=== PATIENT | female | born 1970 | race Caucasian/White ===

== ENCOUNTER 2025-04-27 04:15 | Emergency (ER) | payer OTHER ==
[2025-04-27] MEDS ORDERED: METHYLPREDNISOLONE 125 MG INJ ONE (04:33)
[2025-04-27] MEDS ORDERED: DIPHENHYDRAMINE 50 MG/ML VIAL ONE (04:34)
[2025-04-27] MEDS ORDERED: NA CHLORIDE 0.9% 1,000 ML ONE (04:34)
[2025-04-27] MEDS ORDERED: KETOROLAC 30 MG/ML INJ ONE (04:34)
[2025-04-27] MEDS ORDERED: FAMOTIDINE 20 MG/2 ML VIAL IV ONE (04:34)
--- NOTE | 2025-04-27 05:43 | EDPHYS ---
Physician Documentation [facility] Name: Jeana Guerrero Age: 54 yrs Sex: Female : 1970 Arrival Date: 04/27/2025 Time: 04:15 Bed 8 Private MD: ED Physician Abel Davila HPI: 04/27 04:27 This 54 yrs old Female presents to ER via Unassigned with complaints of sp4 Allergic Reaction, Rash. 04/28 00:34 54-year-old female presents with acute allergic reaction and diffuse rash. Reports this sp4 is secondary to poison maria l that she encountered in the yard. . 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 - Infectious Disease History:: Denies. - Social history:: Smoking status: Reported history of juuling and/or vaping. Patient uses alcohol, occasionally. Patient/guardian denies using street drugs. - Family history:: not pertinent. ROS: 04/28 00:34 Constitutional: Negative for fever, chills, and weight loss, positive for diffuse rash sp4 itching and excoriations. All other systems are negative, Exam: 00:34 Constitutional: This is a well developed, well nourished patient who is awake, alert, sp4 and in no acute distress. 02:02 Head/Face: Normocephalic, atraumatic. Eyes: Pupils equal round and reactive to light, sp4 extra-ocular motions intact. Lids and lashes normal. Conjunctiva and sclera are not injected. Cornea within normal limits. Periorbital areas with no swelling, redness, or edema. ENT: Nares patent. No nasal discharge, no septal abnormalities noted. Tympanic membranes are normal and external auditory canals are clear. Oropharynx with no redness, swelling, or masses, exudates, or evidence of obstruction, uvula midline. Mucous membranes moist. Neck: Trachea midline, no thyromegaly or masses palpated, and no cervical lymphadenopathy. Supple, full range of motion without nuchal rigidity, or vertebral point tenderness. Chest/axilla: Normal chest wall appearance and motion. Nontender with no deformity. No lesions are appreciated. Cardiovascular: Regular rate and rhythm with a normal S1 and S2. No gallops, murmurs, or rubs. No pulse deficits. Respiratory: Lungs have equal breath sounds bilaterally, clear to auscultation and percussion. No rales, rhonchi or wheezes noted. No increased work of breathing, no retractions or nasal flaring. Abdomen/GI: Soft, with normal bowel sounds. No distension or tympany. No guarding or rebound. No evidence of tenderness throughout. Back: No spinal tenderness. No costovertebral tenderness. Skin: Warm, dry with normal turgor. Normal color with bilateral upper lower extremity rash associated with excoriations and blistering, consistent with acute contact dermatitis MS/ Extremity: Pulses equal, no cyanosis. Neurovascular intact. Full, normal range of motion. Neuro: Awake and alert, GCS 15, oriented to person, place, time, and situation. Cranial nerves II-XII grossly intact. Motor strength 5/5 in all extremities. Sensory grossly intact. Psych: Awake, alert, with orientation to person, place and time. Behavior, mood, and affect are within normal limits Vital Signs: 04/27 04:25 BP 153 / 84; Pulse 83; Resp 19; Temp 98.4; Pulse Ox 100% ; Weight 68.04 kg; Height 5 bm8 ft. 4 in. ; Pain 6/10; 05:37 bm8 04:25 Body Mass Index 25.75 (68.04 kg, 162.56 cm) bm8 04:25 Pain Scale: Adult bm8 05:37 pt declined last vitals bm8 Sue Coma Score: 04:26 Eye Response: spontaneous(4). Motor Response: obeys commands(6). Verbal Response: bm8 oriented(5). Total: 15. 05:37 Eye Response: spontaneous(4). Motor Response: obeys commands(6). Verbal Response: bm8 oriented(5). Total: 15. 04/28 02:02 Eye Response: spontaneous(4). Motor Response: obeys commands(6). Verbal Response: sp4 oriented(5). Total: 15. MDM: 04/27 05:01 Medical Screening Exam initiated sp4 04/28 02:02 Differential diagnosis: anaphylaxis, angioedema, Arrhythmias Carcinoid Seizure sp4 urticaria. Data reviewed: vital signs, nurses notes. Consideration of Admission/Observation Escalation of care including admission/observation considered. ED course: Patient feels improved after medications. Stable for discharge home.. 04/27 04:31 Order name: IV Saline Lock; Complete Time: 04:44 sp4 04/27 04:31 Order name: Labs collected and sent; Complete Time: 04:44 sp4 Administered Medications: 04/27 04:44 Drug: Famotidine IVP 20 mg IVP once; dilute with 10 mL 0.9% NaCl; give over 2 minutes bm8 Route: IVP; Site: left hand; 05:38 Follow up: Response: No adverse reaction bm8 04:44 Drug: TORadol - Ketorolac IVP 15 mg IVP once Route: IVP; Site: left hand; bm8 05:39 Follow up: Response: No adverse reaction bm8 04:44 Drug: NS 0.9% IV 1000 ml IV at 1 bolus Per protocol; to be given as a bolus over 60 bm8 minutes Route: IV; Rate: 1 bolus; Site: left hand; 05:38 Follow up: Response: No adverse reaction; IV Status: Completed infusion bm8 04:44 Drug: diphenhydrAMINE IVP 50 mg IVP once Route: IVP; Site: left hand; bm8 05:38 Follow up: Response: No adverse reaction bm8 04:44 Drug: MethylPrednisoLONE IVP 125 mg IVP once Route: IVP; Site: left hand; bm8 05:38 Follow up: Response: No adverse reaction bm8 Disposition: 04/28 02:02 Chart complete. sp4 Disposition Summary: 04/27/25 05:42 Discharge Ordered Notes: Location: Home sp4 Problem: new sp4 Symptoms: have improved sp4 Condition: Stable sp4 Diagnosis - Acute contact dermatitis, poison maria l dermatitis sp4 Followup: sp4 - With: Private Physician - When: 7 - 10 days - Reason: Recheck today's complaints Discharge Instructions: - Discharge Summary Sheet sp4 - Contact Dermatitis, [id number] sp4 Forms: - Patient Portal Instructions sp4 Prescriptions: - Benadryl 25 mg Oral capsule - take 1 capsule ORAL route every 8 hours As needed PRN itching; 30 tablet; sp4 Refills: 0, Product Selection Permitted - Prednisone 20 mg Oral Tablet - take 2 tablets ORAL route once daily for 5 days; 10 tablet; Refills: 0, Product sp4 Selection Permitted Signatures: Abel Davila MD MD sp4 Luiz Samayoa, RN RN bm8
--- NOTE | 2025-04-27 05:43 | ER ---
Nurse's Notes [facility] Name: Jeana Guerrero Age: 54 yrs Sex: Female : 1970 Arrival Date: 04/27/2025 Time: 04:15 Bed 8 Private MD: Diagnosis: Acute contact dermatitis, poison maria l dermatitis Presentation: 04/27 04:25 Chief complaint: Patient states: I was in the yard and got poison maria l all over my legs bm8 and arms and I am highly allergic. 04:25 Coronavirus screen: Vaccine status: Patient reports receiving the 2nd dose of the covid bm8 vaccine. At this time, the client does not indicate any symptoms associated with coronavirus-19. Ebola Screen: Patient negative for fever greater than or equal to 101.5 degrees Fahrenheit, and additional compatible Ebola Virus Disease symptoms Patient denies exposure to infectious person. Patient denies travel to an Ebola-affected area in the 21 days before illness onset. No symptoms or risks identified at this time. Onset: The symptoms/episode began/occurred gradually. Anaphylaxis evaluation, no signs or symptoms of anaphylaxis were noted. Initial Sepsis Screen: Does the patient meet any 2 criteria? No. Patient's initial sepsis screen is negative. Does the patient have a suspected source of infection? No. Patient's initial sepsis screen is negative. Risk Assessment: Do you want to hurt yourself or someone else? Patient reports no desire to harm self or others. Onset of symptoms was April 26, 2025 at 17:00. 04:25 Method Of Arrival: Ambulatory bm8 04:25 Acuity: ENRIQUE 3 bm8 Triage Assessment: 04:25 General: Appears in no apparent distress. uncomfortable, Behavior is cooperative, bm8 anxious. Pain: Complains of pain in chest, abdomen, right arm, left arm, right leg and left leg Pain currently is 6 out of 10 on a pain scale. Quality of pain is described as burning, itching. EENT: No deficits noted. No signs and/or symptoms were reported regarding the EENT system. Neuro: No deficits noted. Level of Consciousness is awake, alert, obeys commands, Oriented to person, place, time, situation, Appropriate for age. 04:25 Cardiovascular: Denies chest pain, Heart tones S1 S2 present Capillary refill < 3 bm8 seconds in bilateral fingers Patient's skin is warm and dry. Respiratory: Airway is patent Respiratory effort is even, unlabored, Respiratory pattern is regular, symmetrical, Breath sounds are clear bilaterally. GI: No deficits noted. No signs and/or symptoms were reported involving the gastrointestinal system. : No deficits noted. No signs and/or symptoms were reported regarding the genitourinary system. Derm: Rash noted that is itchy, red, Reports burning, itching. Musculoskeletal: No deficits noted. No signs and/or symptoms reported regarding the musculoskeletal system. 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 - Infectious Disease History:: Denies. - Social history:: Smoking status: Reported history of juuling and/or vaping. Patient uses alcohol, occasionally. Patient/guardian denies using street drugs. - Family history:: not pertinent. Screenin:26 [facility] ED Fall Risk Assessment (Adult) History of falling in the last 3 months, bm8 including since admission No falls in past 3 months (0 pts) Confusion or Disorientation No (0 pts) Intoxicated or Sedated No (0 pts) Impaired Gait No (0 pts) Mobility Assist Device Used No (0 pt) Altered Elimination No (0 pt) Score/Fall Risk Level 0 - 2 = Low Risk Oriented to surroundings, Maintained a safe environment, Educated pt \T\ family on fall prevention, incl call for assistance when getting out of bed, Assessed \T\ reinforced patient's understanding of fall precautions, Hourly rounding (assess needs \T\ fall precautionary measures) done, Used ambulatory aids as needed (educated on \T\ assisted with), Used gait belt as appropriate. Abuse screen: Denies threats or abuse. Nutritional screening: No deficits noted. Tuberculosis screening: No symptoms or risk factors identified. Assessment: 04:26 Reassessment: see triage assessment. bm8 05:37 Reassessment: Patient appears in no apparent distress at this time. Patient and/or bm8 family updated on plan of care and expected duration. Pain level reassessed. Patient is alert, oriented x 3, equal unlabored respirations, skin warm/dry/pink. pt states that she is ready to go. Patient denies pain at this time. Patient states feeling better. Patient states symptoms have improved. Respiratory: No deficits noted. Airway is patent Trachea midline Respiratory effort is even, unlabored, Respiratory pattern is regular, symmetrical. Vital Signs: 04:25 BP 153 / 84; Pulse 83; Resp 19; Temp 98.4; Pulse Ox 100% ; Weight 68.04 kg; Height 5 bm8 ft. 4 in. ; Pain 6/10; 05:37 bm8 04:25 Body Mass Index 25.75 (68.04 kg, 162.56 cm) bm8 04:25 Pain Scale: Adult bm8 05:37 pt declined last vitals bm8 [place] Coma Score: 04:26 Eye Response: spontaneous(4). Motor Response: obeys commands(6). Verbal Response: bm8 oriented(5). Total: 15. 05:37 Eye Response: spontaneous(4). Motor Response: obeys commands(6). Verbal Response: bm8 oriented(5). Total: 15. 04/28 02:02 Eye Response: spontaneous(4). Motor Response: obeys commands(6). Verbal Response: sp4 oriented(5). Total: 15. ED Course: 04/27 04:19 Patient arrived in ED. im 04:25 Arm band placed on right wrist. bm8 04:26 Shea Forde, RN is Primary Nurse. kd3 04:26 No provider procedures requiring assistance completed. Patient maintains SpO2 bm8 saturation greater than 95% on room air. 04:26 Patient has correct armband on for positive identification. Bed in low position. Call bm8 light in reach. Side rails up X 1. Adult w/ patient. Client placed on continuous cardiac and pulse oximetry monitoring. NIBP monitoring applied. Pulse ox on. NIBP on. Door closed. Noise minimized. Pillow given. Verbal reassurance given. Head of bed elevated. 04:27 Abel Davila MD is Attending Physician. sp4 04:41 Inserted saline lock: 22 gauge in left hand, using aseptic technique. Flushed with 10 kd3 mL NS. 04:46 Triage completed. bm8 05:37 IV discontinued, intact, bleeding controlled, No redness/swelling at site. Pressure bm8 dressing applied. 05:37 Provided Education on: post er care. bm8 Administered Medications: 04:44 Drug: Famotidine IVP 20 mg IVP once; dilute with 10 mL 0.9% NaCl; give over 2 minutes bm8 Route: IVP; Site: left hand; 05:38 Follow up: Response: No adverse reaction bm8 04:44 Drug: TORadol - Ketorolac IVP 15 mg IVP once Route: IVP; Site: left hand; bm8 05:39 Follow up: Response: No adverse reaction bm8 04:44 Drug: NS 0.9% IV 1000 ml IV at 1 bolus Per protocol; to be given as a bolus over 60 bm8 minutes Route: IV; Rate: 1 bolus; Site: left hand; 05:38 Follow up: Response: No adverse reaction; IV Status: Completed infusion bm8 04:44 Drug: diphenhydrAMINE IVP 50 mg IVP once Route: IVP; Site: left hand; bm8 05:38 Follow up: Response: No adverse reaction bm8 04:44 Drug: MethylPrednisoLONE IVP 125 mg IVP once Route: IVP; Site: left hand; bm8 05:38 Follow up: Response: No adverse reaction bm8 Medication: 04:26 VIS not applicable for this client. bm8 Outcome: 05:37 Discharged to home ambulatory, bm8 05:37 Condition: stable 05:37 Discharge instructions given to patient, Instructed on discharge instructions, follow up and referral plans. no drinking with medication, no driving heavy equipment, medication usage, Demonstrated understanding of instructions, follow-up care, medications, Prescriptions given X 2, 05:42 Discharge ordered by . sp4 05:47 Patient left the ED. bm8 Signatures: Shea Forde, RN RN kd3 Abel Davila MD MD sp4 Larissa Eisenberg Brad, RN RN bm8
[2025-04-27 05:52] VITALS: BP 153/84; TEMP 98.4; O2SAT 100
== END 2025-04-27 05:47 | disposition home or self-care (01) ==
LOC: ER 04:15
DX: L25.5 Unspecified contact dermatitis due to plants, except food (principal); F41.9 Anxiety disorder, unspecified
CPT/HCPCS: 96361; 96375; 96374; 99284; J1200; J2919; J7030